=== PATIENT | female | born 1975 | race Caucasian/White ===

== ENCOUNTER 2022-06-11 22:03 | Emergency (ER) | payer OTHER ==
[~2022-06-11] VITALS: Ht 157.5 cm; Wt 64.9 kg
[2022-06-11 22:28] VITALS: BP_SYST 126
[2022-06-11] MEDS ORDERED: NITROGLYCERIN 0.4 MG TAB.SUBL SL ONE (23:15)
[2022-06-11] MEDS ORDERED: PANTOPRAZOLE SODIUM 40 MG TAB PO ONE (23:15)
[2022-06-11] MEDS ORDERED: ASPIRIN 325 MG TABLET PO ONE (23:15)
[2022-06-12 00:37] LABS: BASOPHILS # (AUTO) 0.1 K/uL (0.0-0.2); BASOPHILS % (AUTO) 0.8 % (0.0-2.0); EOSINOPHILS # (AUTO) 0.1 K/uL (0.0-0.4); EOSINOPHILS % (AUTO) 1.8 % (0.0-4.0); HEMATOCRIT 40.5 % (36-48); LYMPHOCYTES # (AUTO) 2.6 K/uL (1.0-5.5); LYMPHOCYTES % (AUTO) 33.3 % (20.5-51.5); MEAN CORPUSCULAR HEMOGLOBIN 32 pg (27-31); MEAN CORPUSCULAR HGB CONC 34 % (32-36); MEAN CORPUSCULAR VOLUME 92 fL (79.0-98.0); MONOCYTES # (AUTO) 0.6 K/uL (0.0-1.0); MONOCYTES % (AUTO) 7.2 % (1.7-9.3); NEUTROPHILS # (AUTO) 4.4 K/uL (1.8-7.7); NEUTROPHILS % (AUTO) 56.9 % (40.0-70.0); PLATELET COUNT (AUTO) 247 K/uL (130-430); RED BLOOD CELL COUNT(AUTO) 4.43 MIL/uL (4.2-6.2); RED CELL DISTRIBUTION WIDTH 13.5 % (9.0-15.0); WHITE BLOOD COUNT (AUTO) 7.8 K/uL (4.8-10.8)
[2022-06-12 00:39] LABS: ANION GAP 8 (5-15); CALCIUM 8.6 mg/dL (8.4-11.0); CHLORIDE 103 mmol/L (98-107); CREATININE 0.99 mg/dL (0.55-1.30); GLUCOSE 94 mg/dL (70-99); POTASSIUM 3.7 mmol/L (3.5-5.1); SODIUM SERUM 139 mmol/L (136-145); UREA NITROGEN, BLOOD 13 mg/dL (8-21)
[2022-06-12 00:49] LABS: GFR AFRICAN AMERICAN 77 mL/min (>90)
[2022-06-12 00:54] LABS: ALANINE AMINOTRANSFERASE 13 U/L (12-78); ALBUMIN 3.6 g/dL (3.4-4.8); ASPARTATE AMINOTRANSFERASE 14 U/L (10-37); TOTAL BILIRUBIN 0.3 mg/dL (0.0-1.0)
[2022-06-12] MEDS ORDERED: PRO40 PO (02:52)
[2022-06-12 03:20] VITALS: BP_SYST 109
== END 2022-06-12 02:55 | disposition home or self-care (01) ==
LOC: SED 22:03
DX: R07.89 Other chest pain (principal); Z79.899 Other long term (current) drug therapy
CPT/HCPCS: 36415; 71045; 80053; 84484; 85025; 93005; 99285